=== PATIENT | male | born 1940 | race Caucasian/White ===

== ENCOUNTER → 2020-08-04 | Outpatient (CLI) | payer MEDICARE, BC | LOC: M WUC 13:39 | PROVIDERS: ATTEND Radiology Radiation Oncology | DX: C61 Malignant neoplasm of prostate (principal) ==

== ENCOUNTER → 2021-07-27 | Outpatient (CLI) | payer MEDICARE, BC | LOC: M PLALAB 11:15 | PROVIDERS: ATTEND Radiology Radiation Oncology | DX: C61 Malignant neoplasm of prostate (principal) ==

== ENCOUNTER → 2023-05-09 | Outpatient (REF) | payer MEDICARE, BC ==
[2023-05-09 13:27] LABS: BASO # 0.1 10^3/uL (0.0-0.2); BASO % 1.1 % (0.0-1.0); EOS # 0.4 10^3/uL (0.0-0.5); EOS % 3.8 % (0.0-3.0); HEMATOCRIT 40.4 % (42.0-52.0); HEMOGLOBIN 13.3 g/dl (13.5-17.5); LYMPH # 2.8 10^3/uL (1.5-5.0); LYMPH % 27.4 % (24.0-44.0); MEAN CORPUSCULAR HEMOGLOBIN 34.7 pg (27.0-33.0); MEAN CORPUSCULAR HGB CONC 32.9 g/dl (32.0-36.5); MEAN CORPUSCULAR VOLUME 105.5 fl (80.0-96.0); MONO % 9.6 % (2.0-8.0); NEUTROPHILS # 5.7 10^3/uL (1.5-8.5); NEUTROPHILS % 56.4 % (36.0-66.0); PLATELET COUNT, AUTOMATED 206 10^3/uL (150-450); RED BLOOD COUNT 3.83 10^6/uL (4.30-6.10)
[2023-05-09 13:32] LABS: ALBUMIN 3.1 G/DL (3.2-5.2); BILIRUBIN,TOTAL 1.1 MG/DL (0.3-1.2); CALCIUM LEVEL 9.3 MG/DL (8.3-10.6); CHOLESTEROL RISK RATIO 3.12 (<5); CREATININE FOR GFR 1.29 MG/DL (0.70-1.30); GLOMERULAR FILTRATION RATE 56.5 (>35); HDL CHOLESTEROL 39.1 MG/DL (>40); LDL CHOLESTEROL 59.7 MG/DL (<100); NON-HDL-C 82.9 MG/DL; POTASSIUM SERUM 4.2 MMOL/L (3.5-5.1); THYROID STIMULATING HORMONE 5.31 uIU/ML (0.55-4.78); TOTAL 25(OH) VITAMIN D 31.6 NG/ML (20.0-100.0); TOTAL PROTEIN 6.2 G/DL (5.7-8.2)
[2023-05-09 14:03] LABS: HEMOGLOBIN A1c 5.8 % (4.0-6.0)
== END ==
LOC: M LAB REF 12:18
PROVIDERS: ATTEND Nurse Practitioner Family
DX: Z13.228 Encounter for screening for other metabolic disorders (principal); Z79.899 Other long term (current) drug therapy

== ENCOUNTER → 2023-06-24 | Outpatient (REF) | payer MEDICARE, BC ==
[2023-06-24 17:42] LABS: THYROID STIMULATING HORMONE 6.009 uIU/ML (0.55-4.78)
[2023-06-24 17:43] LABS: FREE T4 0.77 NG/DL (0.89-1.76)
== END ==
LOC: M LAB REF 16:36
PROVIDERS: ATTEND Nurse Practitioner Family
DX: R94.6 Abnormal results of thyroid function studies (principal)

== ENCOUNTER → 2023-09-10 | Outpatient (REF) | payer MEDICARE, BC ==
[2023-09-10 17:20] LABS: HEMOGLOBIN A1c 5.8 % (4.0-6.0)
== END ==
LOC: M LAB REF 16:20
PROVIDERS: ATTEND Nurse Practitioner Family
DX: E03.9 Hypothyroidism, unspecified (principal); E11.9 Type 2 diabetes mellitus without complications

== ENCOUNTER → 2024-03-10 | Outpatient (REF) | payer MEDICARE, BC | LOC: M LAB REF 16:46 | PROVIDERS: ATTEND Nurse Practitioner Family | DX: E03.9 Hypothyroidism, unspecified (principal) ==

== ENCOUNTER → 2024-05-21 | Outpatient (REF) | payer MEDICARE, BC ==
[2024-05-21 13:39] LABS: FREE T4 0.93 NG/DL (0.89-1.76)
[2024-05-21 13:40] LABS: THYROID STIMULATING HORMONE 3.015 uIU/ML (0.55-4.78)
== END ==
LOC: M LAB REF 12:16
PROVIDERS: ATTEND Nurse Practitioner Family
DX: E03.9 Hypothyroidism, unspecified (principal)

== ENCOUNTER → 2025-06-01 | Outpatient (REF) | payer MEDICARE, BC ==
[2025-06-01 16:52] LABS: ALT/SGPT 26.0 U/L (7.0-40); AST/SGOT 22.0 U/L (<34); CALCIUM LEVEL 8.8 MG/DL (8.3-10.6); CARBON DIOXIDE LEVEL 25.0 MMOL/L (20-31); CHLORIDE LEVEL 105.0 MMOL/L (98-107); CREATININE FOR GFR 1.6 MG/DL (0.70-1.30); GLOMERULAR FILTRATION RATE 41.7 (>35); POTASSIUM SERUM 4.4 MMOL/L (3.5-5.1); SODIUM LEVEL 141.0 MMOL/L (136-145)
== END ==
LOC: M LAB REF 16:23
PROVIDERS: ATTEND Nurse Practitioner Family
DX: N18.30 Chronic kidney disease, stage 3 unspecified (principal)

== ENCOUNTER → 2025-09-21 | Outpatient (REF) | payer MEDICARE, BC ==
[2025-09-21 17:25] LABS: CALCIUM LEVEL 8.2 MG/DL (8.3-10.6); CARBON DIOXIDE LEVEL 26.0 MMOL/L (20-31); CHLORIDE LEVEL 107.0 MMOL/L (98-107); CREATININE FOR GFR 1.51 MG/DL (0.70-1.30); GLOMERULAR FILTRATION RATE 44.7 (>35); POTASSIUM SERUM 4.8 MMOL/L (3.5-5.1); SODIUM LEVEL 143.0 MMOL/L (136-145)
== END ==
LOC: M LAB REF 16:19
PROVIDERS: ATTEND Student in an Organized Health Care Education/Training Program
DX: I50.9 Heart failure, unspecified (principal)